=== PATIENT | female | born 1980 | race Caucasian/White ===

== ENCOUNTER 2016-07-25 22:35 | Emergency (ER) | payer OTHER ==
[2016-07-25] MEDS ORDERED: Sodium Chloride 0.9% 1000 ML 1,000 ML IV STA (23:56)
[2016-07-26 00:01] VITALS: BP 110/50; PULSE 68
[2016-07-26 00:02] VITALS: O2SAT 97
--- NOTE | 2016-07-26 00:02 | ERPHSYRPT ---
- History of Present Illness Time Seen by Provider: 07/25/16 23:31 Source: patient Exam Limitations: no limitations (-year-old) Patient Subjective Stated Complaint: pt states she was having tingling in her face and weakness in her lt arm. Triage Nursing Assessment: pt alert and oriented. answers questions approp. pupils equal and reactive. bilat ext strength equal and strong. pt denies any numbness or tingling at this time. Physician History: This is a 35-year-old white female with history of gallbladder disease bronchitis anxiety depression and chronic pain. Patient arrives with complaint of sudden onset of paresthesias around her mouth she states she felt as if she was having her that her right arm drawing up and pulling upward occurred at approximately 9:30 PM this evening she states she drank a large amount of water and came into the emergency room At this current time she has a full range of motion to all the extremities she is not having any problems speaking she has not had any problems speaking however her family states that the patient had a period of time where she was staring off into space and not speaking to them which lasted for around a minute. Patient states she has not been otherwise ill she does state she has chronic pain and has chronic pain in her left arm and shoulder. Past medical history includes gallbladder disease, bronchitis, anxiety, depression, chronic pain Past surgical history includes cholecystectomy, , neck surgery and back surgery also tubal ligation Allergies/Adverse Reactions: oxycodone HCl [From Percocet] Allergy (Mild, Verified 07/25/16 23:15) Hives Home Medications: No Home Meds 1 ea UD 07/25/16 [History] Hx Tetanus, Diphtheria Vaccination/Date Given: Yes Hx Influenza Vaccination/Date Given: No Hx Pneumococcal Vaccination/Date Given: No Immunizations Up to Date: Yes - Review of Systems Constitutional: No Fever, No Chills Eyes: No Symptoms Ears, Nose, & Throat: No Symptoms Respiratory: No Cough, No Dyspnea Cardiac: No Chest Pain, No Edema, No Syncope Abdominal/Gastrointestinal: No Abdominal Pain, No Nausea, No Vomiting, No Diarrhea Genitourinary Symptoms: No Dysuria Musculoskeletal: Other (patient felt like her left arm was drawing up earlier) Skin: No Rash Neurological: Other (paresthesia to the lips, felt like left arm wasn't drawing up earlier, family reports patient was staring off into space for a minute) Psychological: Anxiety (patient with a lot of anxiety over her daughter), No Suicidal Ideations, No Homicidal Ideations Endocrine: No Symptoms All Other Systems: Reviewed and Negative - Past Medical History Pertinent Past Medical History: Yes Neurological History: No Pertinent History ENT History: No Pertinent History Cardiac History: No Pertinent History Respiratory History: Bronchitis Endocrine Medical History: No Pertinent History Musculoskeletal History: No Pertinent History GI Medical History: Gallbladder Disease History: No Pertinent History Psycho-Social History: Anxiety, Depression Female Reproductive Disorders: No Pertinent History Other Medical History: chronic pain - Past Surgical History Past Surgical History: Yes Neuro Surgical History: No Pertinent History Cardiac: No Pertinent History Respiratory: No Pertinent History Gastrointestinal: Cholecystectomy Genitourinary: No Pertinent History Musculoskeletal: No Pertinent History, Orthopedic Surgery Female Surgical History: Section Other Surgical History: neck shoulder back surg, shoulder surgery - Social History Smoking Status: Current every day smoker How long have you smoked: 25yrs + Exposure to second hand smoke: Yes Drug Use: none Patient Lives Alone: No - Female History Hx Last Menstrual Period: 07/02/16 - Nursing Vital Signs Nursing Vital Signs: Initial Vital Signs Temperature 97.9 F Temperature Source Oral Pulse Rate 68 Respiratory Rate 16 Blood Pressure [Left Arm] 110/50 Pain Intensity 0 - Physical Exam General Appearance: no apparent distress, alert Eye Exam: PERRL/EOMI, eyes nml inspection Ears, Nose, Throat Exam: normal ENT inspection, TMs normal, pharynx normal, moist mucous membranes Neck Exam: normal inspection, non-tender, supple, full range of motion Respiratory Exam: normal breath sounds, lungs clear, No respiratory distress Cardiovascular Exam: regular rate/rhythm, normal heart sounds, normal peripheral pulses Gastrointestinal/Abdomen Exam: soft, normal bowel sounds, No tenderness, No mass Back Exam: normal inspection, normal range of motion, No CVA tenderness, No vertebral tenderness Extremity Exam: normal inspection, normal range of motion, pelvis stable Neurologic Exam: alert, oriented x 3, cooperative, normal mood/affect, nml cerebellar function, nml station & gait, sensation nml, other (patient is alert , oriented 3, cranial nerves II through XII, no facial droop , diagrammer are equal and symmetrical 5 over 5, speech is normal, [id number] within normal limits , no pronator drift sensation intact to all extremities), No motor deficits Skin Exam: normal color, warm, dry, No rash SpO2 Interpretation: normal (97%) SpO2: 97 Oxygen Delivery: Room Air - Course Nursing assessment & vital signs reviewed: Yes EKG Interpreted by Me: RATE (74 bpm), Sinus Rhythm, NORMAL AXIS, Other (EKG sinus rhythm, 74 bpm, normal axis, no acute ST or T wave changes, essentially normal EKG) Ordered Tests: Active Orders 24 hr Category Date Time Status EKG-ER Only STAT Care 07/25/16 22:44 Active IV Insertion STAT Care 07/25/16 22:44 Active HEAD WITHOUT CONTRAST [CT] Stat Exams 07/25/16 23:57 Ordered CBC W DIFF Stat Lab 07/25/16 23:56 Ordered CMP Stat Lab 07/25/16 23:56 Ordered HCG QUALITATIVE,SERUM Stat Lab 07/25/16 23:57 Ordered TROPONIN Stat Lab 07/25/16 23:56 Ordered UA W/RFX UR CULTURE Stat Lab 07/26/16 00:01 Ordered Urine Triage Profile Stat Lab 07/25/16 23:56 Ordered Medication Summary Generic Name Dose Route Start Last Admin Trade Name Freq PRN Reason Stop Dose Admin Sodium Chloride 1,000 mls @ 999 mls/hr 07/25/16 23:56 Sodium Chloride 0.9% 1000 Ml IV 07/26/16 00:56 .Q1H1M STA - Progress Progress: improved Progress Note: 07/26/16 00:09 35-year-old white female with history of chronic pain, bronchitis, gallbladder disease, anxiety, depression She arrives with complaint of paresthesia around her face and around 9:30 today states that she had drawing up of her left arm associated with this. She states that she has had chronic of pain in her of left side of her neck and shoulder. Her family states that when they went to talk to her when she was doing this she was staring off into space for several minutes. Patient arrives she is alert oriented 3 she has normal neurologic exam finger- nose within normal limits diagrammer are equal and symmetrical 5 over 5 there is no pronator drift tongue does not deviate has full range of motion all extremities and sensation isn't intact to all extremities Yahir Coma Scale is 15. EKG has been obtained for the patient to the is normal with normal sinus rhythm 74 bpm normal axis normal EKG. I have put in orders for head CT CBC CMP troponin and EKG on this patient however patient does not want to stay. The medic taking care of the patient has reported to me that the patient had a urine sample which was cold and appeared to be clear with no color in it I asked the patient about this she stated that she drank lots of water prior to coming to the emergency room. The patient feels like she probably just has anxiety she has been dealing with the daughter who is causing her stress she is not suicidal or homicidal. I have told the patient that we could go ahead and obtain the patient's lab work and studies however she does not want to have these done and actually does not want to stay and will sign out AGAINST MEDICAL ADVICE. - Departure Time of Disposition: 00:12 Departure Disposition: AMA Clinical Impression: Paresthesia, Anxiety, Chronic shoulder pain Condition: Fair Critical Care Time: No Referrals: BILLY ANN [Primary Care Provider] - Additional Instructions: Return or follow-up with your family doctor if problems
== END 2016-07-26 00:12 | disposition left against medical advice (07) ==
LOC: ED 22:35
DX: R20.9 Unspecified disturbances of skin sensation (principal); F41.9 Anxiety disorder, unspecified; M25.512 Pain in left shoulder
CPT/HCPCS: 36000; 80307; 93005; 96360; 99281; 99284